=== PATIENT | female | born 2000 | race Hispanic/Latino ===

== ENCOUNTER → 2024-07-11 | Outpatient (CLI) | payer MEDICAID ==
--- NOTE | 2024-07-11 14:27 | HMCIMG ---
Exam Type: MR KNEE LEFT WO Clinical Information: DISLOCATION OF PATELLA Comparison: None Technique: MRI of the knee was done with triplane localizer, axial T2 as well as sagittal proton density T2, T1, and fat-saturated T2. In addition, coronal T1 and coronal fat-saturated spin-echo sequences are available for review. FINDINGS: The examination is unremarkable. Specifically, no meniscal pathology is seen. No effusions are identified. No bony abnormalities are seen. The articular cartilage is preserved. The cruciate and collateral ligaments are intact. No periarticular soft tissue abnormalities are seen. No Bakers cyst identified. There are no other gross abnormalities. IMPRESSION: 1. NORMAL MRI OF THE KNEE.
== END | disposition home or self-care (01) ==
LOC: RAH 12:53
PROVIDERS: ATTEND Family Medicine
DX: S83.422D Sprain of lateral collateral ligament of left knee, subsequent encounter (principal); M22.02 Recurrent dislocation of patella, left knee; M25.562 Pain in left knee; M23.92 Unspecified internal derangement of left knee; X58.XXXD Exposure to other specified factors, subsequent encounter
CPT/HCPCS: 73721